=== PATIENT | female | born 1985 | race Caucasian/White ===

== ENCOUNTER 2019-07-24 12:50 | Emergency (ER) | payer OTHER, SELFPAY ==
[2019-07-24 12:57] VITALS: BP 111/65; PULSE 87; RESP 20; TEMP 37.2; O2SAT 99
--- NOTE | 2019-07-24 13:14 | ED.GENADULT ---
HPI - General Adult General Chief complaint: Eye Problems Stated complaint: redness and swelling in left eye Time Seen by Provider: 07/24/19 13:14 Source: patient and RN notes reviewed Mode of arrival: ambulatory Limitations: no limitations History of Present Illness HPI narrative: 33-year-old female presenting with complains LT upper eyelid redness, swelling, and tenderness for the past 3 days. Swelling and tenderness increase today. Denies injury to eye or bug bites. No drainage. No blurred vision, double vision, sensation of foreign body, or pain of eye with movement. Denies fever, chills, headaches, weakness, fatigue, myalgia, or facial swelling. Denies chest pain or dyspnea. Denies cough, rhinorrhea, congestion, sore throat, nausea, vomiting, abdominal pain, and diarrhea. Tolerating po intake well. Denies recent traveling. Denies concern for COVID-19 or exposures been home since wivd-ct-wvea order has not going out even for essential household needs (Laura says her fiancee goes). Laura denies being , LMP 9 years ago due to IUD being in place. Some parts of this dictation were generated by voice recognition software and may contain typographical and/or grammatical inaccuracies. Related Data Allergies Allergy/AdvReac Type Severity Reaction Status Date / Time azithromycin Allergy Intermediate Difficulty Verified 07/24/19 13:12 Breathing Review of Systems Review of Systems: Narrative: CONSTITUTIONAL: Denies fever, chills, sweats. EYES: Denies visual changes, drainage. Complains of LT upper eyelid redness, swelling, and tenderness. ENT: Denies rhinorrhea, congestion, sore throat, otalgia. CARDIOVASCULAR: Denies chest pain, palpitations, edema. RESPIRATORY: Denies dyspnea, wheezing, cough. GASTROINTESTINAL: Denies abdominal pain, nausea, vomiting, diarrhea. GENITOURINARY: Denies dysuria, hematuria, abnormal discharge. SKIN: Denies rash or itching. MUSCULOSKELETAL: Denies acute back pain, joint pain, or myalgia. NEUROLOGIC: Denies numbness or focal weakness. PSYCHIATRIC: Denies anxiety or depression. All systems reviewed and are unremarkable except as noted in HPI and below. [facility] Past Medical History Medical History (Updated 07/24/19 @ 14:26 by BERNARD Barr) Abnormal cervical cytology Bronchitis Strabismus both eyes Surgical History Surgical History (Updated 07/24/19 @ 14:24 by BERNARD Barr) History of cryosurgery History of strabismus surgery Bilateral History of tympanoplasty of right ear Family History Family History (Updated 07/24/19 @ 14:25 by BERNARD Barr) Father Unknown family medical history Mother Diabetes mellitus Type 2 Social History Social History (Updated 07/24/19 @ 14:27 by BERNARD Barr) Smoking packs per day: 0.45 Smoking cigarettes per day: 9.0 Years smoked: 16 Smoking pack-years: 7.20 Smoking status: Current every day smoker Tobacco type: cigarettes Second hand tobacco smoke exposure: No Alcohol intake: former Substance use: never Living arrangements: with family Occupation/Education: unemployed Gender identity (if verbalized by the patient): Female Comments At time of signature, I have reviewed and agree with nursing past medical, surgical, social, and family history. Please see nursing chart for further information. There is no relevant family history pertinent to the presenting complaint. Exam Narrative: Exam Narrative: GENERAL: This is a well-nourished, well-developed patient, in no apparent distress. Talks in full sentences and ambulates with steady gait without dyspnea. HEAD: normocephalic, atraumatic. EYES: PERRL. Bilateral sclera clear/white. Vision is grossly intact. No discharge. LT upper eyelid with mild-moderate swelling and erythema, mild tenderness to LT upper eyelid on palpation. Vision is grossly intact. Snellen wall eye exam with corrective lens (contacts) R
== END 2019-07-24 13:36 | disposition home or self-care (01) ==
PROVIDERS: Emergency Provider Nurse Practitioner Family; PCP Physician Assistant
DX: H00.024 Hordeolum internum left upper eyelid (principal)
CPT/HCPCS: 99203; G0463

== ENCOUNTER 2020-05-23 16:59 | Outpatient (CLI) | payer OTHER, SELFPAY | END 2020-05-23 17:00 | disposition home or self-care (01) | LOC: ANHCOVIDVC 16:59 | PROVIDERS: PCP Physician Assistant | DX: Z23 Encounter for immunization (principal) | CPT/HCPCS: 0001A; 91300 ==

== ENCOUNTER 2020-06-13 16:56 | Outpatient (CLI) | payer OTHER, SELFPAY | END 2020-06-13 16:57 | disposition home or self-care (01) | LOC: ANHCOVIDVC 16:56 | PROVIDERS: PCP Physician Assistant | DX: Z23 Encounter for immunization (principal) | CPT/HCPCS: 0002A; 91300 ==

== ENCOUNTER 2020-12-30 19:16 | Emergency (ER) | payer OTHER, SELFPAY ==
[2020-12-30 19:24] VITALS: BP 121/85; PULSE 91; RESP 16; TEMP 36.8; O2SAT 100
--- NOTE | 2020-12-30 19:25 | ED.UPPEXIN ---
HPI - Extremity Injury (Upper) General Chief Complaint: Extremity Injury, Upper Stated Complaint: Left Shoulder Pain Time Seen by Provider: 12/30/20 19:26 Source: patient Mode of arrival: ambulatory Limitations: no limitations History of Present Illness HPI narrative: Laura is a 35-year-old female patient [facility] 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 Patient denies shortness of breath, denies chest pain, or any other issues. Patient has tried icy hot, ibuprofen, and Epson salt soaks. complaint: injury to: left Other Extremity Injury: Left: forearm Other injuries: none Related Data Allergies Allergy/AdvReac Type Severity Reaction Status Date / Time azithromycin Allergy Intermediate Difficulty Verified 07/24/19 13:12 Breathing Review of Systems Review of Systems: CONSTITUTIONAL: Denies body aches, fever, chills, or sweats. EYES: Denies visual changes, redness, or discharge. ENT: Denies rhinorrhea, congestion, sore throat, or otalgia. CARDIOVASCULAR: Denies chest pain, palpitations, or edema. RESPIRATORY: Denies cough or dyspnea. GASTROINTESTINAL: Denies abdominal pain, nausea, vomiting, or diarrhea. GENITOURINARY: Denies dysuria or hematuria. SKIN: Denies rash, itching, or wounds. MUSCULOSKELETAL: Left shoulder/back pain. NEUROLOGIC: Denies headache, numbness, tingling, or weakness. PSYCH: Denies depression or anxiety. All systems reviewed & are unremarkable except as noted in HPI and below PMFSH Past Medical History Medical History Abnormal cervical cytology Bronchitis Strabismus both eyes Surgical History Surgical History History of cryosurgery History of strabismus surgery Bilateral History of tympanoplasty of right ear Family History Family History Father Unknown family medical history Mother Diabetes mellitus Type 2 Social History Social History Smoking packs per day: 0.45 Smoking cigarettes per day: 9.0 Years smoked: 16 Smoking pack-years: 7.20 Smoking status: Current every day smoker Tobacco type: cigarettes Second hand tobacco smoke exposure: No Alcohol intake: former Substance use: never Gender identity (if verbalized by the patient): Female Comments At time of signature, I have reviewed and agree with nursing past medical, surgical, social and family history unless otherwise noted. Please see nursing chart for further information. There is no relevant family history pertinent to the presenting complaint Exam Narrative: GENERAL: Well-appearing, well-nourished, and in no acute distress. HEAD: Normocephalic, atraumatic. EYES: EOMI. No redness or drainage. Conjunctivae normal. ENT: Mucous membranes pink and moist. Nares clear. No rhinorrhea. TMs normal NECK: Normal AROM. Supple. y. MUSCULOSKELETAL: No bony tenderness.Pain with palpation left trapezius, full ROM noted to left shoulder, distal sensation and movement intact. EXTREMITIES: Normal range of motion. No edema. SKIN: Warm, dry, no rash. Capillary refill normal. Normal skin turgor. NEURO: No focal deficits. Alert and oriented x3. Gait steady. PSYCH: Normal affect. No signs of depression or anxiety. Course Vital Signs Vital signs: Vital Signs Temperature 36.8 C 12/30/20 19:24 Pulse Rate 91 12/30/20 19:24 Respiratory Rate 16 12/30/20 19:24 Blood Pressure 121/85 12/30/20 19:24 Pulse Oximetry 100 12/30/20 19:24 Temperature 36.8 C 12/30/20 19:30 Pulse Rate 91 12/30/20 19:30 Respiratory Rate 16 12/30/20 19:30 Blood Pressure 121/85 12/30/20 19:30 Pulse Oximetry 100 12/30/20 19:30 Reviewed MDM - Extremity Injury (Upper) MDM Narrative Medical
[2020-12-30 19:30] VITALS: BP 121/85; PULSE 91; RESP 16; TEMP 36.8; O2SAT 100
== END 2020-12-30 19:45 | disposition home or self-care (01) ==
PROVIDERS: Emergency Provider Nurse Practitioner Family; PCP Physician Assistant
DX: S46.912A Strain of unspecified muscle, fascia and tendon at shoulder and upper arm level, left arm, initial encounter (principal); X50.9XXA Other and unspecified overexertion or strenuous movements or postures, initial encounter; X50.3XXA Overexertion from repetitive movements, initial encounter; F17.210 Nicotine dependence, cigarettes, uncomplicated
CPT/HCPCS: 99213; G0463

== ENCOUNTER 2024-09-21 09:51 | Emergency (ER) | payer OTHER, SELFPAY ==
[2024-09-21 10:02] VITALS: BP 149/70; PULSE 80; RESP 18; TEMP 36.6; O2SAT 100
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
--- OUTSIDE RECORDS SUMMARY | 2024-09-21 10:02 | XMS_ITS ---
Author Name NANCY RAMAN [facility] RE Address [address] [place] [address] Phone [facility] Address [address] [place] [address] Phone Care Team Providers Care Csw Name Role Phone NANCY RAMAN CARE Unavailable [phone] ENIO DAVIDSON Unavailable EASTON CHAVEZ Unavailable ROBERT MAGANA Unavailable ALLERGIES, ADVERSE REACTIONS AND ALERTS Allergy Name Allergy Date Allergy Status Allergy Severity Allergy Reaction Zithromax, [RxNorm: 926114] 01/14/2022 Current MEDICATIONS RxNorm Brand Name Prescription Ordered Value Order Unit Start Date Date Status Fill Status Indications 676075 cycloben zaprine 5 mg tablet SIG: cyclobenzaprine 5 mg oral tablet, 4 days, Dispense #12 Tablet, 0 Refills, Directions: Take 1 oral tablet 3 times a day 12 tablet 2021 Historic [id number] naproxen 500 mg tablet SIG: naproxen 500 mg oral tablet, 7 days, Dispense #14 Tablet, 0 Refills, Directions: Take 1 oral tablet every 12 hours as needed 14 tablet 2021 Historic [id number] amoxicil rashmi-pot clavulan ate 875-125 mg tablet SIG: amoxicillin-pot clavulanate 875-125 mg oral tablet, 10 days, Dispense #20 Tablet, 0 Refills, Directions: Take 1 oral tablet 2 times a day 20 tablet 2021 023 Historic [id number] Mirena 21 mcg/24 hours (8 yrs) 52 mg intraute rine device SIG: Mirena 21 mcg/24 hours (8 yrs) 52 mg intrauterine intrauterine device, 0 days, Dispense #null Each, 0 Refills, Directions: DIRECTED intraut erine device 2022 Current [id number] hydroxyz ine HCl 10 mg tablet SIG: hydroxyzine HCl 10 mg oral tablet, 0 days, Dispense #null Tablet, 0 Refills, Directions: DIRECTED tablet 2022 Current 259570 acetamin ophen 500 mg tablet SIG: acetaminophen 500 mg oral tablet, 5 days, Dispense #30 Tablet, 0 Refills, Directions: Take 2 oral tablets (1000 mg) every 8 hours as needed for pain/fever. 30 tablet 2022 Historic [id number] IBU 800 mg tablet SIG: IBU 800 mg oral tablet, 5 days, Dispense #15 Tablet, 0 Refills, Directions: Take 1 oral tablet every 8 hours as needed for pain/fever/swel ling. Take with food. 15 tablet 2022 Historic PROBLEMS Problem Code Problem Description Problem Status Problem Da te Problem End Date R25.2-CRAMP AND SPASM CRAMP AND SPASM Historic M79.662-PAIN IN LEFT LOWER LEG PAIN IN LEFT LOWER LEG Historic 01/14/2022 Z71.9-COUNSELING, UNSPECIFIED COUNSELING, UNSPECIFIED Historic 01/14/2022 H66.92-OTITIS MEDIA, UNSPECIFIED, LEFT EAR OTITIS MEDIA, UNSPECIFIED, LEFT EAR Historic 03/06/2022 H92.02-OTALGIA, LEFT EAR OTALGIA, LEFT EAR Historic 03/06/2022 [id number] Anxiety Chronic 10/17/2022 [id number] procedure Surgical procedure Historic 10/17/2022 Z20.822-CONTACT WITH AND (SUSPECTED) EXPOSURE TO COVID-19 CONTACT WITH AND (SUSPECTED) EXPOSURE TO COVID-19 Historic 10/17/2022 R51.9-HEADACHE, UNSPECIFIED HEADACHE, UNSPECIFIED Historic 10/17/2022 R53.83-OTHER FATIGUE OTHER FATIGUE Historic 10/17/2022 R07.0-PAIN IN THROAT PAIN IN THROAT Historic 10/17/2022 Z76.89-PERSONS ENCOUNTERING HEALTH SERVICES IN OTH CIRCUMSTANCES PERSONS ENCOUNTERING HEALTH SERVICES IN OTH CIRCUMSTANCES Current 07/12/2023 PROCEDURES Procedure Description Date Notes NO PROCEDURES PERFORMED ASSESSMENTS Assessment None PLAN OF TREATMENT Assessment Planned Activity LOINC Planned Prateek e None CONSULTATION NOTE Note Author Date None HISTORY AND PHYSICAL NOTE Note Author Date None PROGRESS NOTE Note Author Date None DISCHARGE SUMMARY Note Author Date None CHIEF COMPLAINT AND REASON FOR VISIT FUNCTIONAL STATUS Functional or Cognitive Find ing None MENTAL STATUS Cognitive Finding None ENCOUNTERS Encounter Type Provider Diagnoses Start Date Location Disc harged to None SOCIAL HISTORY Social Status Observation Current Regular Smoker Sex: Female CARE TEAM INFORMATION Csw Provider ID Role Location Phone ENIO DAVIDSON [phone] [address] [place], [place] [facility] [phone] [address] [place] [facility] OTHER [address] [place], [place] ROBERT MAGANA [phone] NURSE PRACTITIONER [address] [place], [place] INSURANCE PROVIDERS Payer Name Policy type / Coverage type Covered constitution party ID Policy [employer] [facility] Medicaid [id number] SELF
--- OUTSIDE RECORDS SUMMARY | 2024-09-21 10:02 | XMS_ITS | Clinical Summary ---
Author Organization [facility] Address [address] [place] [id number] Care Team Providers Care Machine Stacker Name Role Phone Unavailable Primary Care Provider Unavailabl e Social History Tobacco Use Types Packs/Day Years Used Date Smoking Tobacco: Never Assessed Comments Unknown Sex and Gender Information Value Date Recorded Sex Assigned at Not on file Legal Sex Female 7:39 AM PERSONAL HEALTH COACH Gender Identity Not on file Sexual Orientation Not on file Plan of Treatment Health Maintenance Due Date Last Done Comments Cervical Cancer Screening Pa p Smear (Age 30 to 64) Every 3 Years 1984 Annual Physical 12/22/1987 Hepatitis C 2002 DTaP, Tdap and Td Vaccines ( 1 - Tdap) 12/22/2003 Hepatitis B Vaccines (1 of 3 - 19+ 3-dose series) 12/22/2003 Cervical Cancer Screening Pa p with HPV Testing (Age 30 to 64) Every 5 Years 2014 Cervical Cancer Screening with HPV 2014 COVID-19 Vaccine (2023-2 5 season) 2023 HPV Vaccines Aged Out No longer eligi ble based on patient's age to complete this topic Meningococcal B Vaccine Aged Out No l onger eligible based on patient's age to complete this topic Meningococcal Vaccine Aged Out No pillo kacie eligible based on patient's age to complete this topic Pneumococcal Vaccine: Pediat rics (0 to 5 Years) and At-Risk Patients (6 to 49 Years) Aged Out No longer eligible b ased on patient's age to complete this topic RSV Immunizations Under 20 Months Aged Out No longer eligible based on patient's age to complete this topic Insurance [facility]
--- OUTSIDE RECORDS SUMMARY | 2024-09-21 10:04 | XMS_ITS ---
Author Name NANCY RAMAN CA RE Address [address] [place] [address] [facility] Address [address] [place] [address] Phone Care Team Providers Care Guidance Services Coordinator Name Role Phone NANCY RAMAN CARE Unavailable [phone] ENIO DAVIDSON Unavailable EASTON CHAVEZ Unavailable ROBERT MAGANA Unavailable ALLERGIES, ADVERSE REACTIONS AND ALERTS Allergy Name Allergy Date Allergy Status Allergy Severity Allergy Reaction Zithromax, [RxNorm: [id number]] 01/14/2022 Current MEDICATIONS RxNorm Brand Name Prescription Ordered Value Order Unit Start Date Date Status Fill Status Indications 807308 cycloben zaprine 5 mg tablet SIG: cyclobenzaprine 5 mg oral tablet, 4 days, Dispense #12 Tablet, 0 Refills, Directions: Take 1 oral tablet 3 times a day 12 tablet 2021 Historic [id number] naproxen 500 mg tablet SIG: naproxen 500 mg oral tablet, 7 days, Dispense #14 Tablet, 0 Refills, Directions: Take 1 oral tablet every 12 hours as needed 14 tablet 2021 Historic [id number] amoxicil rashmi-pot clavulan ate 875-125 mg tablet SIG: amoxicillin-pot clavulanate 875-125 mg oral tablet, 10 days, Dispense #20 Tablet, 0 Refills, Directions: Take 1 oral tablet 2 times a day 20 tablet 2021 023 Historic [id number] Mirena 21 mcg/24 hours (8 yrs) 52 mg intraute rine device SIG: Mirena 21 mcg/24 hours (8 yrs) 52 mg intrauterine intrauterine device, 0 days, Dispense #null Each, 0 Refills, Directions: DIRECTED intraut erine device 2022 Current [id number] hydroxyz ine HCl 10 mg tablet SIG: hydroxyzine HCl 10 mg oral tablet, 0 days, Dispense #null Tablet, 0 Refills, Directions: DIRECTED tablet 2022 Current [id number] acetamin ophen 500 mg tablet SIG: acetaminophen [...] LEFT EAR OTALGIA, LEFT EAR Historic 03/06/2022 [id number] Anxiety Chronic 10/17/2022 [id number] procedure Surgical procedure Historic 10/17/2022 Z20.822-CONTACT WITH [...] Regular Smoker Sex: Female CARE TEAM INFORMATION Guidance Services Coordinator Provider ID Role Location Phone ENIO DAVIDSON [phone] [address] [place], [place] [facility] [id number] [address] [place] [facility] CARE [facility] OTHER [address] [place], [place] ROBERT MAGANA [id number] NURSE PRACTITIONER [address] [place], [place] INSURANCE PROVIDERS Payer Name Policy type / Coverage type Covered constitution party ID Policy [employer] [facility] Medicaid [id number] SELF
--- NOTE | 2024-09-21 10:37 | ED.SKABFB ---
HPI - Skin/Abscess/Foreign Bdy General Chief complaint: Urogenital-Female Stated complaint: STD/Rash Time Seen by Provider: 09/21/24 10:00 Source: patient and RN notes reviewed Mode of arrival: ambulatory Limitations: no limitations History of Present Illness HPI narrative: 38-year-old female presents Express Care complaining of irritation near her rectum for approximately 3-4 days. Patient is worried she may have an STD. Patient says she has a new partner recently and had been having unprotected sex. Patient denies any anal intercourse. Patient denies any vaginal symptoms of vaginal discharge, pelvic pain, fevers, abdominal pain, nausea, vomiting or any other symptoms. Patient reports she feels like her bumps near her rectum and feels it more on the right side. Patient has not trying to help with symptoms. Related Data Home Medications ?Medication ?Instructions ?Recorded ?Confirmed ?Last Taken ?Type albuterol sulfate 90 mcg/actuation inhalation 09/21/24 Unknown History aerosol inhaler quetiapine 25 mg tablet mg 09/21/24 Unknown History sertraline 50 mg tablet mg 09/21/24 Unknown History Allergies Allergy/AdvReac Type Severity Reaction Status Date / Time azithromycin Allergy Intermediate Difficulty Verified 09/21/24 10:03 Breathing Review of Systems Review of Systems: CONSTITUTIONAL: Denies fever, chills, or sweats. EYES: Denies visual changes, redness, or discharge. ENT: Denies rhinorrhea, congestion, sore throat, or otalgia. CARDIOVASCULAR: Denies chest pain, palpitations, or edema. RESPIRATORY: Denies cough or dyspnea. GASTROINTESTINAL: Denies abdominal pain, nausea, vomiting, or diarrhea. GENITOURINARY: Denies dysuria, vaginal discharge, pelvic pain, or hematuria. SKIN: Denies itching. Positive for rash. MUSCULOSKELETAL: Denies back pain, joint pain, or myalgia. NEUROLOGIC: Denies headache, numbness, or weakness. PSYCHIATRIC: Denies anxiety or depression. All other systems reviewed are negative, except as documented in HPI. COUNT INCLUDES THE [facility] Past Medical History Medical History Bronchitis Abnormal cervical cytology Strabismus both eyes Surgical History Surgical History History of cryosurgery History of tympanoplasty of right ear History of strabismus surgery Bilateral Family History Family History Father Unknown family medical history Mother Diabetes mellitus Type 2 Social History Social History Smoking packs per day: 0.45 Smoking cigarettes per day: 9.0 Years smoked: 16 Smoking pack-years: 7.20 Smoking status: Current every day smoker Tobacco type: cigarettes Second hand tobacco smoke exposure: No Alcohol intake: former Substance use: never Living arrangements: with family Occupation/Education: unemployed Gender identity (if verbalized by the patient): Female Comments At the time of my signature, I reviewed and agree with the nursing past medical, surgical, social, and family history. There is no relevant family history pertinent to the patient complaint. Exam Narrative: GENERAL: This is a well-nourished, well-developed adult, in no apparent distress. They are non ill-appearing, nontoxic appearing. HEAD: normocephalic, atraumatic. EYES: Sclera clear/white. Conjunctiva normal. Vision is grossly intact. Extraocular movements intact EARS: External ears normal, Hearing grossly intact. NOSE: External nose normal THROAT: Mucous membranes moist, NECK: Neck supple, CARDIOVASCULAR: Regular rate and rhythm RESPIRATORY: Respiratory rate normal, respiratory effort nonlabored, no respiratory distress SKIN: Rectum: Papular rash near the right side of the anus. No induration, no area of fluctuance, no exudate, no surrounding cellulitis. Rash nontender, no ulcerations. No obvious hemorrhoids or masses. GENTIOURINARY: Patient declined pelvic exam/vaginal exam. NEURO: awake, alert, and oriented to person, place and time. There were no obvious focal neurologic abnormalities. EXTREMITIES: No joint tenderness, effusion, or edema noted. Course Course Emergency Course: Portions of this record may have been created with voice recognition software Level of Care: Express Care Visit Vital Signs Vital signs: Vital Signs Temperature 97.8 F 09/21/24 10:02 Pulse Rate 80 09/21/24 10:02 Respiratory Rate 18 09/21/24 10:02 Blood Pressure 149/70 H 09/21/24 10:02 Pulse Oximetry 100 09/21/24 10:02 Oxygen Delivery Room Air 09/21/24 10:02 Temperature 97.8 F 09/21/24 10:02 Pulse Rate 80 09/21/24 10:02 Respiratory Rate 18 09/21/24 10:02 Blood Pressure 149/70 H 09/21/24 10:02 Pulse Oximetry 100 09/21/24 10:02 Oxygen Delivery Room Air 09/21/24 10:02 Reviewed MDM - Skin/Abscess/Foreign Bdy MDM Narrative Medical decision making narrative: 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 Herpes swabs obtained, rash appears friction related patient would like to be swab for herpes. Recommend patient use [id number] hydrocortisone in to help with symptoms. Herpes swab is pending. Patient would also like to be tested for STDs, she is currently asymptomatic. Offered patient pelvic exam and speculum exam and she declined. Urine culture obtained for chlamydia, gonorrhea, Trichomonas. Patient will wait for any treatment until the swabs have resulted. Discussed physical exam findings. Advised supportive measures and signs/symptoms to go to the ER. Pt is appropriate for outpt treatment and f/u. Differential Diagnosis Differential diagnosis: Likely abscess of skin or subcutaneous tissue, contact dermatitis and other (STD, herpes, hemorrhoids) Lab Data Labs: Lab Results 09/21/24 Range/Units 10:15 HSV I DNA PCR Pending HSV II DNA PCR Pending Critical Care Time Critical Care Time Critical Care Time: No Discharge Plan Discharge Clinical Impression: Encounter for assessment of STD exposure, Irritation of rectum Patient Disposition: Home Condition: Stable Instructions: Sexually Transmitted Diseases (ED), Safe Sex Practices (ED) Additional Instructions: ?Your urine sample has been sent off to test for gonorrhea, chlamydia, and trichomonas infections. ?These tests can take up to 1-3 days to come back. You Will be notified the results once they have resulted. Your herpes swab was sent off as well and this may take up to a week to result. Please remain abstinent until you know your results or have completed full treatment for an STD. You may try hydrocortisone cream to help with irritation area rectum. Follow-up with PCP in 3-5 days. If your symptoms worsen, you developed fever, abdominal pain, nausea, vomiting, vaginal bleeding, pelvic pain or any other concerns please go to the ER immediately. Patient Language: Trinidadian Prescriptions: No Action quetiapine 25 mg tablet albuterol sulfate 90 mcg/actuation HFA aerosol inhaler INHALATION sertraline 50 mg tablet Follow-up/Referrals: Annalise,NIKUNJ Holliday [Primary Care Provider] - Time of Disposition: 10:20
[2024-09-21 19:37] LABS: Trichomonas Vag PCR NOT DETECTED (NOT DETECTE)
[2024-09-23 09:08] LABS: HSV-1 DNA Positive (Negative); HSV-2 DNA Negative (Negative)
== END 2024-09-21 10:29 | disposition home or self-care (01) ==
PROVIDERS: PCP Physician Assistant
DX: Z20.2 Contact with and (suspected) exposure to infections with a predominantly sexual mode of transmission (principal); K62.89 Other specified diseases of anus and rectum; B00.9 Herpesviral infection, unspecified; F17.210 Nicotine dependence, cigarettes, uncomplicated
CPT/HCPCS: 86615; 87491; 87529; 87591; 87661; 99213; G0463

== ENCOUNTER 2024-11-26 17:08 | Emergency (ER) | payer OTHER, SELFPAY ==
[2024-11-26 17:10] VITALS: BP 118/69; PULSE 66; RESP 16; TEMP 36.6; O2SAT 100
--- NOTE | 2024-11-26 17:17 | ED_ITS ---
HPI - General Adult General Chief complaint: Unspecified Stated complaint: bug bite Related Data Home Medications ?Medication ?Instructions ?Recorded ?Confirmed ?Last Taken ?Type naproxen sodium 550 mg tablet mg 11/26/24 Unknown His tory Allergies Allergy/AdvReac Type Severity Reaction Status Date / Time azithromycin Allergy Intermediate Difficulty Verified 11/26/24 17:12 Breathing PMFSH Past Medical History Medical History Bronchitis Abnormal cervical cytology Strabismus both eyes Surgical History Surgical History History of cryosurgery History of tympanoplasty of right ear History of strabismus surgery Bilateral Family History Family History Father Unknown family medical history Mother Diabetes mellitus Type 2 Social History Social History Smoking packs per day: 0.45 Smoking cigarettes per day: 9.0 Years smoked: 16 Smoking pack-years: 7.20 Smoking status: Current every day smoker Tobacco type: cigarettes Second hand tobacco smoke exposure: No Alcohol intake: former Substance use: never Living arrangements: with family Occupation/Education: unemployed Gender identity (if verbalized by the patient): Female Discharge Plan Discharge Patient Language: Belgian Prescriptions: No Action naproxen sodium 550 mg tablet Follow-up/Referrals: Annalise,NIKUNJ Holliday [Primary Care Provider]
--- NOTE | 2024-11-26 17:22 | ED.SKABFB ---
HPI - Skin/Abscess/Foreign Bdy General Chief complaint: Unspecified Stated complaint: bug bite Time Seen by Provider: 11/26/24 17:22 Source: patient and RN notes reviewed Mode of arrival: ambulatory Limitations: dementia History of Present Illness HPI narrative: 38-year-old female presents with concern for an infection on her right leg. Reports she just finished Bactrim which she was prescribed in the ER, and the infection is not gone. Reports still draining. And a separate complaint she reports she would like to get tested for STDs because she has had a partner. She denies any symptoms. MD complaint: insect bite/sting Related Data Home Medications ?Medication ?Instructions ?Recorded ?Confirmed ?Last Taken ?Type naproxen sodium 550 mg tablet mg 11/26/24 Unknown History Allergies Allergy/AdvReac Type Severity Reaction Status Date / Time azithromycin Allergy Intermediate Difficulty Verified 11/26/24 17:12 Breathing Review of Systems Review of Systems: CONSTITUTIONAL: Denies malaise, chills, sweats, or fever. EYES: Denies redness, or discharge. ENT: Denies rhinorrhea, congestion, swollen lips, swollen tongue CARDIOVASCULAR: Denies chest pain, palpitations, or edema. RESPIRATORY: Denies cough or dyspnea. GASTROINTESTINAL: Denies abdominal pain, nausea, vomiting SKIN: Reports draining wound on the back of her right leg. Denies vesicles, bullae, numbness, pain beyond proportion MUSCULOSKELETAL: Denies joint pain or myalgia. : Denies dysuria, frequency, urgency, vaginal discharge NEUROLOGIC: Denies headache. All systems reviewed & are unremarkable except as noted in HPI and below PMFSH Past Medical History Medical History Bronchitis Abnormal cervical cytology Strabismus both eyes Surgical History Surgical History History of cryosurgery History of tympanoplasty of right ear History of strabismus surgery Bilateral Family History Family History Father Unknown family medical history Mother Diabetes mellitus Type 2 Social History Social History Smoking packs per day: 0.45 Smoking cigarettes per day: 9.0 Years smoked: 16 Smoking pack-years: 7.20 Smoking status: Current every day smoker Tobacco type: cigarettes Second hand tobacco smoke exposure: No Alcohol intake: former Substance use: never Living arrangements: with family Occupation/Education: unemployed Gender identity (if verbalized by the patient): Female Comments At time of signature, agree with nursing past medical, surgical, social and family history. There is no relevant family history pertinent to the presenting complaint Exam Narrative: GENERAL: Well-appearing, well-nourished, and in no acute distress. HEAD: Normocephalic, atraumatic. EYES: PERRLA, conjunctivae clear ENT: Mucous membranes moist. NECK: Supple. No lymphadenopathy CHEST: Clear to auscultation. No respiratory distress. HEART: Regular rate and rhythm. SKIN: Warm, dry. 1.5 cm circular wound with red tissue bed noted to the posterior right thigh surrounded by approximately 3 cm of erythema and induration. This wound bed is surrounded by 6 cm x 4 cm scabs in the shape of adhesive bandage. No vesicles, bullae, necrosis, ecchymosis, crepitus noted. NEURO: Alert and oriented x3. PSYCH: Normal mood and affect Course Course Emergency Course: Patient is aware of diagnosis, understands and agrees to treatment plan. Anticipatory guidance given. Patient agrees to follow-up as directed and is aware of reasons to seek care at the emergency department. Portions of this record may have been created with voice recognition software Level of Care: Express Care Visit Vital Signs Vital signs: Vital Signs Temperature 98 F 11/26/24 17:10 Pulse Rate 66 11/26/24 17:10 Respiratory Rate 16 11/26/24 17:10 Blood Pressure 118/69 11/26/24 17:10 Pulse Oximetry 100 11/26/24 17:10 Oxygen Delivery Room Air 11/26/24 17:10 Temperature 98 F 11/26/24 17:10 Pulse Rate 66 11/26/24 17:10 Respiratory Rate 16 11/26/24 17:10 Blood Pressure 118/69 11/26/24 17:10 Pulse Oximetry 100 11/26/24 17:10 Oxygen Delivery Room Air 11/26/24 17:10 Reviewed. MDM - Skin/Abscess/Foreign Bdy MDM Narrative Medical decision making narrative: I evaluated this in the express care. History is obtained from patient who is an independent historian and physical exam was performed.? Available medical records were reviewed. ? Exam findings and relevant testing show no acute concerns or changes; patient is non-toxic appearing and is in no distress. Does not appear at this time to be erythema multiforme, bullous, SJS, TEN; no evidence at this time to suggest RMSF, NSTI, endocarditis or Lyme disease; patient looks well, nontoxic and is tolerating oral intake; no neurologic signs or symptoms; no headache, photophobia or neck pain; afebrile.? Patient does not have history of of penetrating trauma, laceration, blunt trauma, recent surgery, immunosuppression, malignancy, obesity, alcoholism, corticosteroid use.? Discussed the importance of follow-up, patient agrees; question, cellulitis versus necrotizing soft tissue infection versus abscess.?? Patient is appropriate for outpatient treatment and follow-up. Critical Care Time Critical Care Time Critical Care Time: No Discharge Plan Discharge Clinical Impression: Bacterial skin infection, Possible exposure to STD Patient Disposition: Home Condition: Stable Instructions: Antibiotic Form, Cellulitis (ED) Additional Instructions: Please follow up with your Primary Care Doctor within 48-72 hours - call for an appointment. Rest and elevate affected area; apply moist heat 3-4 times daily for 10-15 minutes. Take Motrin 600mg every 8 hours with food for pain. Keep the wound covered until it stops draining. Please take Antibiotics as directed. If you experience any worsening redness, swelling, streaking (red lines), fever or chills please go to the ER STD: You have been tested for potential gonorrhea, chlamydia, and trichomoniasis today. You will receive a phone call in 2-3 days with the results of today's testing, any necessary treatment will be discussed at that time, you may have to return for an injection. It is very important that you avoid unprotected intercourse during treatment and for 7 days AFTER TREATMENT is complete and until your partner(s) have been treated. Please encourage your partner(s) to seek testing and treatment. When you have been exposed to sexually transmitted infections, it is important that you seek comprehensive testing, since we do not provide testing for all sexually transmitted infections. Some infections can have no symptoms, but cause serious health problems. Contact your health care provider or report to the emergency department if: You have genital swelling or pain, or unusual bleeding. You have joint pain, rash, swollen lymph nodes or night sweats. You are severe abdominal pain. You have a fever. Symptoms do not go away or they get worse even after treatment. You have bleeding or pain during sex. Patient Language: Mauritian Prescriptions: New clindamycin HCl 300 mg capsule 300 mg PO Q8H 7 Days Qty: 21 0RF No Action naproxen sodium 550 mg tablet Follow-up/Referrals: Annalise,NIKUNJ Holliday [Primary Care Provider] Time of Disposition: 17:31
[2024-11-26 19:33] LABS: Trichomonas Vag PCR NOT DETECTED (NOT DETECTE)
== END 2024-11-26 17:39 | disposition home or self-care (01) ==
PROVIDERS: Emergency Provider Nurse Practitioner; PCP Physician Assistant
DX: L08.9 Local infection of the skin and subcutaneous tissue, unspecified (principal); B96.89 Other specified bacterial agents as the cause of diseases classified elsewhere; Z11.3 Encounter for screening for infections with a predominantly sexual mode of transmission; F17.210 Nicotine dependence, cigarettes, uncomplicated
CPT/HCPCS: 87491; 87591; 87661; 99213; G0463

== ENCOUNTER 2025-02-13 18:25 | Emergency (ER) | payer OTHER, SELFPAY ==
--- OUTSIDE RECORDS SUMMARY | 2025-02-13 18:27 | XMS_ITS ---
Author Name NANCY RAMAN CA RE Address [address] [place] [address] Phone [facility] URGENT [facility] RE WALK IN CLINIC Address [address] [place] [address] Phone Care Team Providers Care Superintendent Drivers Name Role Phone NANCY RAMAN CARE Unavailable [phone] ENIO DAVIDSON Unavailable EASTON CHAVEZ Unavailable ROBERT MAGANA Unavailable ALLERGIES, ADVERSE REACTIONS AND ALERTS Allergy Name Allergy Date Allergy Status Allergy Severity Allergy Reaction Zithromax, [RxNorm: [id number]] 01/14/2022 Current MEDICATIONS RxNorm Brand Name Prescription Ordered Value Order Unit Start Date Date Status Fill Status Indications [id number] cycloben zaprine 5 mg tablet SIG: cyclobenzaprine 5 mg oral tablet, 4 days, Dispense #12 Tablet, 0 Refills, Directions: Take 1 oral tablet 3 times a day 12 tablet 2021 Historic [id number] naproxen 500 mg tablet SIG: naproxen 500 mg oral tablet, 7 days, Dispense #14 Tablet, 0 Refills, Directions: Take 1 oral tablet every 12 hours as needed 14 tablet 2021 Historic [id number] amoxicil rashmi-pot clavulan ate 875-125 mg tablet SIG: amoxicillin-pot clavulanate 875-125 mg oral tablet, 10 days, Dispense #20 Tablet, 0 Refills, Directions: Take 1 oral tablet 2 times a day 20 tablet 2021 023 Historic [id number] Mirena 21 mcg/24 hours (8 yrs) 52 mg intraute rine device SIG: Mirena 21 mcg/24 hours (8 yrs) 52 mg intrauterine intrauterine device, 0 days, Dispense #null Each, 0 Refills, Directions: DIRECTED intraut erine device 2022 Current [id number] hydroxyz ine HCl 10 mg tablet SIG: hydroxyzine HCl 10 mg oral tablet, 0 days, Dispense #null Tablet, 0 Refills, Directions: DIRECTED tablet 2022 Current [id number] acetamin ophen 500 mg tablet SIG: acetaminophen [...] LEFT EAR OTALGIA, LEFT EAR Historic 03/06/2022 [id number] Anxiety Chronic 10/17/2022 [id number] procedure Surgical procedure Historic 10/17/2022 Z20.822-CONTACT WITH [...] Regular Smoker Sex: Female CARE TEAM INFORMATION Superintendent Drivers Provider ID Role Location Phone ENIO DAVIDSON [id number] [address] [place], [place] [facility] [id number] [address] [place], [place] URGENT CARE [facility] OTHER [address] [place], [place] ROBERT MAGANA [id number] NURSE PRACTITIONER [address] [place], [place] INSURANCE PROVIDERS Payer Name Policy type / Coverage type Covered democrat ID Policy [employer] [facility] Medicaid [id number] SELF
--- OUTSIDE RECORDS SUMMARY | 2025-02-13 18:27 | XMS_ITS | Clinical Summary ---
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 Gender Identity Not on file Sexual Orientation Not on file Plan of Treatment Health Maintenance Due Date Last Done Comments Cervical Cancer Screening Pa p Smear (Age 30 to 64) Every 3 Years 1984 Annual Physical 12/22/1987 Hepatitis C 2002 DTaP, Tdap and Td Vaccines ( 1 - Tdap) 12/22/2003 Hepatitis B Vaccines (1 of 3 - 19+ 3-dose series) 12/22/2003 HPV Vaccines (1 - 3-dose SCD M series) 12/22/2011 Cervical Cancer Screening Pa p with HPV Testing (Age 30 to 64) Every 5 Years 2014 Cervical Cancer Screening with HPV 2014 COVID-19 Vaccine (2024-2 6 season) 2024 Influenza Adult (#1) 2024 Mammogram Screening 2024 Hepatitis A Vaccines Aged Out No long er eligible based on patient's age to complete [...] patient's age to complete this topic Insurance MITCH
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
--- OUTSIDE RECORDS SUMMARY | 2025-02-13 18:29 | XMS_ITS ---
Author Name NANCY RAMAN [facility] Address [address] [place] [address] Phone [facility] Address [address] [place] [address] Phone Care Team Providers Care Director General Name Role Phone NANCY RAMAN [facility] Unavailable [phone] ENIO DAVIDSON Unavailable EASTON CHAVEZ Unavailable ROBERT MAGANA Unavailable ALLERGIES, ADVERSE REACTIONS AND ALERTS Allergy Name Allergy Date Allergy Status Allergy Severity Allergy Reaction Zithromax, [RxNorm: 824940] 01/14/2022 Current MEDICATIONS RxNorm Brand Name Prescription Ordered Value Order Unit Start Date Date Status Fill Status Indications 544221 cycloben zaprine 5 mg tablet SIG: cyclobenzaprine 5 mg oral tablet, 4 days, Dispense #12 Tablet, 0 Refills, Directions: Take 1 oral tablet 3 times a day 12 tablet 2021 Historic [id number] naproxen 500 mg tablet SIG: naproxen 500 mg oral tablet, 7 days, Dispense #14 Tablet, 0 Refills, Directions: Take 1 oral tablet every 12 hours as needed 14 tablet 2021 Historic [id number] amoxicil rashmi-pot clavulan ate 875-125 mg tablet SIG: amoxicillin-pot clavulanate 875-125 mg oral tablet, 10 days, Dispense #20 Tablet, 0 Refills, Directions: Take 1 oral tablet 2 times a day 20 tablet 2021 023 Historic [id number] Mirena 21 mcg/24 hours (8 yrs) 52 mg intraute rine device SIG: Mirena 21 mcg/24 hours (8 yrs) 52 mg intrauterine intrauterine device, 0 days, Dispense #null Each, 0 Refills, Directions: DIRECTED intraut erine device 2022 Current [id number] hydroxyz ine HCl 10 mg tablet SIG: hydroxyzine HCl 10 mg oral tablet, 0 days, Dispense #null Tablet, 0 Refills, Directions: DIRECTED tablet 2022 Current [id number] acetamin ophen 500 mg tablet SIG: acetaminophen [...] LEFT EAR OTALGIA, LEFT EAR Historic 03/06/2022 [id number] Anxiety Chronic 10/17/2022 [id number] Surgical procedure Historic 10/17/2022 Z20.822-CONTACT WITH [...] Regular Smoker Sex: Female CARE TEAM INFORMATION Director General Provider ID Role Location Phone ENIO DAVIDSON [phone] [address] [place] [facility] [phone] [address] [place] [facility] OTHER [address] [place] ROBERT MAGANA [phone] NURSE PRACTITIONER [address] [place], [place] INSURANCE PROVIDERS Payer Name Policy type / Coverage type Covered libertarian ID Policy [employer] [facility] Medicaid [id number] SELF
--- NOTE | 2025-02-13 18:35 | ED_ITS ---
HPI - URI/Sore Throat General Chief Complaint: Ear Stated Complaint: Sore Throat/Left Ear Pain Time Seen by Provider: 02/13/25 18:35 Source: patient Mode of arrival: ambulatory Limitations: no limitations History of Present Illness HPI Narrative: 39 y/o female presented for c/o sore throat, left ear pain and headache. Onset this morning. Denies cough, n/v/d/f/c. Not taking anything for symptoms. Related Data Home Medications ?Medication ?Instructions ?Recorded ?Confirmed ?Last Taken ?Type No Home Medications 02/13/25 02/13/25 U nknown History Allergies Allergy/AdvReac Type Severity Reaction Status Date / Time azithromycin Allergy Intermediate Difficulty Verified 02/13/25 18:37 Breathing Review of Systems Review of Systems: CONSTITUTIONAL: Denies malaise, chills, or fever. EYES: Denies visual changes, redness, or discharge. ENT: Denies rhinorrhea, congestion, sinus pain, Reports ear pain and sore throat. CARDIOVASCULAR: Denies chest pain, palpitations, or edema. RESPIRATORY: Denies cough or dyspnea. GASTROINTESTINAL: Denies abdominal pain, nausea, vomiting, diarrhea SKIN: Denies rash or itching. MUSCULOSKELETAL: Denies myalgia. NEUROLOGIC: Denies headache. All systems reviewed & are unremarkable except as noted in HPI and below PMFSH Past Medical History Medical History Bronchitis Abnormal cervical cytology Strabismus both eyes Surgical History Surgical History History of cryosurgery History of tympanoplasty of right ear History of strabismus surgery Bilateral Family History Family History Father Unknown family medical history Mother Diabetes mellitus Type 2 Social History Social History Smoking packs per day: 0.45 Smoking cigarettes per day: 9.0 Years smoked: 16 Smoking pack-years: 7.20 Smoking status: Current every day smoker Tobacco type: cigarettes Second hand tobacco smoke exposure: No Alcohol intake: former Substance use: never Living arrangements: with family Occupation/Education: unemployed Gender identity (if verbalized by the patient): Female Comments At time of signature, agree with nursing past medical, surgical, social and family history. There is no relevant family history pertinent to the presenting complaint Exam Narrative: GENERAL: Well-appearing, well-nourished, and in no acute distress. EYES: PERRLA, conjunctivae clear ENT: Nares clear. Mucous membranes moist. TM erythematous, bulging and intact; canal not erythematous, no drainage, no tragal tenderness. Oropharynx not erythematous without lesions. no drooling, no hoarseness, no trismus, uvula midline. NECK: Supple. No lymphadenopathy CHEST: Clear to auscultation, breath sounds equal. No wheezing, rhonchi, rales, or stridor. No respiratory distress, speaks in full sentences. HEART: Regular rate and rhythm. No murmur heard. SKIN: Warm, dry, no rash. NEURO: Alert and oriented x3. PSYCH: Normal mood and affect Course Course Level of Care: Express Care Visit Vital Signs Vital signs: Vital Signs Temperature 98.4 F 02/13/25 18:38 Pulse Rate 91 02/13/25 18:38 Respiratory Rate 18 02/13/25 18:38 Blood Pressure 135/94 H 02/13/25 18:38 Pulse Oximetry 99 02/13/25 18:38 Oxygen Delivery Room Air 02/13/25 18:38 Temperature 98.4 F 02/13/25 18:38 Pulse Rate 91 02/13/25 18:38 Respiratory Rate 18 02/13/25 18:38 Blood Pressure 135/94 H 02/13/25 18:38 Pulse Oximetry 99 02/13/25 18:38 Oxygen Delivery Room Air 02/13/25 18:38 MDM MDM Narrative Medical decision making narrative: Discussed physical exam findings. Negative flu, COVID, strep. Advised supportive measures and signs/symptoms to go to the ER. Pt is appropriate for outpt treatment and f/u. Differential Diagnosis Differential Diagnosis: Influenza, covid, sinusitis, OM, strep pharyngitis, URI Lab Data Labs: Lab Results 02/13/25 Range/Units 18:43 POC Influenza A Ag Negative (Negative) POC Influenza B Ag Negative (Negative) POC SARS CoV-2 Ag Negative (Negative) POC Grp A Strep Screen Negative (Negative) Discharge Plan Discharge Clinical Impression: Pharyngitis Patient Disposition: Home Condition: Stable Instructions: Antibiotic Form, Pharyngitis (ED), Earache (ED) Additional Instructions: Your rapid covid/flu test was negative today. It may be too early to detect the virus, therefore we recommend retesting at home in 1-2 days Continue to follow general precautions: frequent handwashing, wear a mask, isolate/social distance, and avoid crowds if you have a fever. You must be fever free for 24 hours without the use of fever reducing medication (Tylenol/ibuprofen) before returning to work/school/crowds. Rapid strep swab was also negative today You will be notified in a few days if the culture comes back positive for strep, and appropriate antibiotics will be called in at that time. if symptoms are due to a viral illness, it is not treated with antibiotics. Viral symptoms can be present for up to 10-14 days. Recommendations: Flonase spray and Zyrtec for sinus congestion Cough syrup may cause drowsiness; avoid driving or take it at night time. Tylenol every 8 hours as needed for pain/fever Soft foods, cool liquids, warm tea. Gargle with warm saltwater twice a day. Chloraseptic spray and throat lozenges. Rest and stay hydrated. --Follow up with your PCP --Go to the ER immediately if you cannot swallow your saliva, trouble breathing/wheezing, throat swelling, pain is persistent and severe Patient Language: Guyanese Prescriptions: No Action No Home Medications Follow-up/Referrals: Annalise,NIKUNJ Holliday [Primary Care Provider] Time of Disposition: 19:09
[2025-02-13 18:38] VITALS: BP 135/94; PULSE 91; RESP 18; TEMP 36.9; O2SAT 99
[2025-02-13 18:45] LABS: EDCOVIDSCREEN Negative (Negative); EDINFLUASCREEN Negative (Negative); EDINFLUBSCREEN Negative (Negative); EDSTREPNEGPOS1 Negative (Negative)
== END 2025-02-13 19:16 | disposition home or self-care (01) ==
PROVIDERS: Emergency Provider Nurse Practitioner Family; PCP Physician Assistant
DX: J02.9 Acute pharyngitis, unspecified (principal); Z20.822 Contact with and (suspected) exposure to COVID-19; F17.210 Nicotine dependence, cigarettes, uncomplicated
CPT/HCPCS: 87081; 87426; 87804; 87880; 99213; G0463